=== PATIENT | male | born 1950 | race Caucasian/White ===

== ENCOUNTER 2018-07-12 13:25 | Emergency (ER) | payer OTHER ==
[~2018-07-12] VITALS: Ht 175.3 cm; Wt 70.3 kg
[2018-07-12 13:37] VITALS: BP_SYST 145
[2018-07-12 14:01] LABS: EOSINOPHILS # (AUTO) 0.1 K/uL (0.0-0.4); LYMPHOCYTES # (AUTO) 1.7 K/uL (1.0-5.5); MONOCYTES # (AUTO) 0.8 K/uL (0.0-1.0); MONOCYTES % (AUTO) 11.9 % (1.7-9.3)
[2018-07-12 14:03] LABS: BASOPHILS % (AUTO) 0.5 % (0.0-2.0); EOSINOPHILS % (AUTO) 2.3 % (0.0-4.0); HEMATOCRIT 45.5 % (36-54); HEMOGLOBIN 15.1 g/dL (14.0-18.0); LYMPHOCYTES % (AUTO) 26.8 % (20.5-51.5); MEAN CORPUSCULAR HEMOGLOBIN 30 pg (27-31); MEAN CORPUSCULAR HGB CONC 33 % (32-36); MEAN CORPUSCULAR VOLUME 89 fL (79.0-98.0); NEUTROPHILS # (AUTO) 3.9 K/uL (1.8-7.7); NEUTROPHILS % (AUTO) 58.5 % (40.0-70.0); PLATELET COUNT (AUTO) 330 K/uL (130-430); RED CELL DISTRIBUTION WIDTH 11.8 % (9.0-15.0); WHITE BLOOD COUNT (AUTO) 6.5 K/uL (4.8-10.8)
[2018-07-12 14:09] LABS: CALCIUM 9.1 mg/dL (8.4-11.0); CREATININE 0.81 mg/dL (0.55-1.30); POTASSIUM 4.4 mmol/L (3.5-5.1)
[2018-07-12 14:13] LABS: PROTHROMBIN TIME 10.4 SECS (9.5-12.5)
[2018-07-12 14:14] LABS: ALBUMIN 3.3 g/dL (3.4-4.8); TOTAL BILIRUBIN 1.2 mg/dL (0.0-1.0)
[2018-07-12 15:40] VITALS: BP_SYST 145
== END 2018-07-12 15:40 | disposition home or self-care (01) ==
LOC: SED 13:25
DX: S01.01XA Laceration without foreign body of scalp, initial encounter (principal); S70.01XA Contusion of right hip, initial encounter; W18.30XA Fall on same level, unspecified, initial encounter; Y93.K1 Activity, walking an animal; Y92.89 Other specified places as the place of occurrence of the external cause; Y99.8 Other external cause status
CPT/HCPCS: 36415; 70450-TC; 72192-TC; 80053; 85025; 85610-TC; 85730-TC; 99284